=== PATIENT | female | born 1965 | race Caucasian/White ===

== ENCOUNTER 2018-06-07 16:40 | Emergency (ER) | payer OTHER ==
--- NOTE | 2018-06-07 16:53 | PDOC ---
Rapid Medical Evaluation Chief Complaint: Pain Time Seen by Provider: 06/07/18 16:51 Medical Evaluation: 06/07/18 16:52 I have performed a brief in-person evaluation of this patient. The patient presents with a chief complaint of: L foot pain X 3 days, felt like she stepped on something Pertinent physical exam findings:redness adn erythema noted in R plantar aspect- -lateral edge I have ordered the following:xray The patient will proceed to the ED for further evaluation. Discharge Disposition - Diagnosis Foot pain, left - Referrals - Patient Instructions - Post Discharge Activity
[2018-06-07 16:56] VITALS: BP 155/87; PULSE 82; TEMP 98; BMI 24.2
[2018-06-07] MEDS ORDERED: IBUPROFEN 400 MG TABLET (FP) PO ONE ×2 (17:41→17:48)
--- NOTE | 2018-06-07 17:47 | PDOC ---
History of Present Illness - General Chief Complaint: Pain Stated Complaint: LEFT FOOT PAIN Time Seen by Provider: 06/07/18 16:51 History Source: Patient Exam Limitations: Clinical Condition - History of Present Illness Initial Comments: 06/07/18 17:42 Patient with no sig Past medical history presenting with complain of pain and redness to bottom of left foot since yesterday without trauma or injury. Patient reported increased pain with ambulation or stepping on her foot. Last tetanus vaccine 4 years ago. Denies any other symptoms Timing/Duration: 24 hours Past History - Past Medical History Allergies/Adverse Reactions: Allergies Allergy/AdvReac Type Severity Reaction Status Date / Time No Known Allergies Allergy Verified 06/07/18 16:56 Home Medications: Ambulatory Orders Ibuprofen 800 mg PO Q8H PRN #20 tablet 06/07/18 Sulfamethoxazole/Trimethoprim [Bactrim Ds Tablet] 1 each PO BID 5 Days #10 tablet 06/07/18 - Suicide/Smoking/Psychosocial Hx Smoking History: Never smoked Have you smoked in the past 12 months: No Information on smoking cessation initiated: No Hx Alcohol Use: No Drug/Substance Use Hx: No Review of Systems - Review of Systems Able to Perform ROS?: Yes Is the patient limited Maori proficient: No Constitutional: No: Chills, Diaphoresis, Fever, Loss of Appetite, Malaise, Night Sweats, Weakness, Weight Stable, Unintentional Wgt. Loss, Unexplained wgt Loss, Other HEENTM: No: Eye Pain, Blurred Vision, Tearing, Recent change in vision, Double Vision, Cataracts, Ear Pain, Ocular Prothesis, Ear Discharge, Nose Pain, Nose Congestion, Tinnitus, Nose Bleeding, Hearing Loss, Throat Pain, Throat Swelling , Mouth Pain, Dental Problems, Difficulty Swallowing, Mouth Swelling, Other Respiratory: No: Cough, Orthopnea, Shortness of Breath, SOB with Exertion, SOB at Rest, Stridor, Wheezing, Productive cough, Hemoptysis, Other Cardiac (ROS): No: Chest Pain, Edema, Irregular Heart Rate, Lightheadedness, Palpitations, Syncope, Chest Tightness, Other ABD/GI: No: Abdominal Distended, Abd. Pain w/ defecation, Blood Streaked Bowels , Constipated, Diarrhea, Difficulty Swallowing, Nausea, Poor Appetite, Poor Fluid Intake, Rectal Bleeding, Vomiting, Indigestion, Abdominal cramping, Tarry Stools, Other Musculoskeletal: Yes: See HPI, Muscle Pain (lateral bottom of left foot). No: Back Pain, Gout, Joint Pain, Joint Swelling, Muscle Weakness, Neck Pain, Joint Stiffness, Other Integumentary: Yes: See HPI, Erythema (over pain area of bottom of left foot) All Other Systems: Reviewed and Negative *Physical Exam - Vital Signs Last Vital Signs Temp Pulse Resp BP Pulse Ox 98.0 F 82 16 155/87 100 06/07/18 16:49 06/07/18 16:49 06/07/18 16:49 06/07/18 16:49 06/07/18 16:49 - Physical Exam Comments: 06/07/18 17:45 GENERAL: Well developed, well nourished. Awake and alert. No acute distress. HEENT: Normocephalic, atraumatic. PERRLA, EOMI. No conjunctival pallor. Sclera are non- icteric. Moist mucous membranes. Oropharynx is clear. NECK: Supple. Full ROM. No JVD. Carotid pulses 2+ and symmetric, without bruits. No thyromegaly. No lymphadenopathy. CARDIOVASCULAR: Regular rate and rhythm. No murmurs, rubs, or gallops. Distal pulses are 2+ and symmetric. PULMONARY: No evidence of respiratory distress. Lungs clear to auscultation bilaterally. No wheezing, rales or rhonchi. ABDOMINAL: Soft. Non-tender. Non-distended. No rebound or guarding. No organomegaly. Normoactive bowel sounds. MUSCULOSKELETAL Normal range of motion at all joints. No bony deformities or tenderness. No CVA tenderness. EXTREMITIES: Moderate point tenderness over area of redness to lateral plantar aspect of left foot with mild erythema to site. No open wounds or swelling No cyanosis. No clubbing. No edema. No calf tenderness. SKIN: Mild erythema to plantar lateral of left foot. No open wound or entry wound.Warm and dry. NEUROLOGICAL: Alert, awake, appropriate. Cranial nerves 2-12 intact. No deficits to light touch and temperature in face, upper extremities and lower extremities. No motor deficits in the in face, upper extremities and lower extremities. Normoreflexic in the upper and lower extremities. Normal speech. Toes are down- going bilaterally. Gait is normal without ataxia. PSYCHIATRIC: Cooperative. Good eye contact. Appropriate mood and affect. General Appearance: Yes: Nourished, Appropriately Dressed. No: Apparent Distress Medical Decision Making - Medical Decision Making 06/07/18 17:47 Patient with no sig Past medical history presenting with complain of three-day history of pain and redness to plantar aspect of left foot without trauma or injury. Exam shows mild erythema to plantar lateral aspect of left foot and moderate tenderness on palpation of plantar aspect of left foot. X-ray of left foot and ankle shows no acute pathology. Symptoms likely puncture wound versus foot sprain. Patient be treated on NSAIDs and antibiotics with podiatry follow- up. Left foot wrapped with Zoltan bandage *DC/Admit/Observation/Transfer Diagnosis at time of Disposition: Foot pain, left, Cellulitis of left foot - Discharge Dispostion Disposition: HOME Condition at time of disposition: Stable Decision to Admit order: No - Prescriptions Prescriptions: Ibuprofen 800 mg PO Q8H PRN #20 tablet PRN Reason: foot pain Sulfamethoxazole/Trimethoprim [Bactrim Ds Tablet] 1 each PO BID 5 Days #10 tablet - Referrals Referrals: Angus Beckford MD [Staff Physician] - - Patient Instructions Printed Discharge Instructions: DI for Puncture Wound Additional Instructions: take prescribed medication as prescribed. follow up with referred podiatry - Post Discharge Activity
== END 2018-06-07 17:58 | disposition home or self-care (01) ==
LOC: JERFT 16:40
DX: L03.116 Cellulitis of left lower limb (principal); M79.672 Pain in left foot
CPT/HCPCS: 73630-TC-LT; 99281-25

== ENCOUNTER 2023-01-02 10:58 | Inpatient (IN) | payer OTHER ==
[2023-01-02] MEDS ORDERED: SODIUM CHLORIDE 0.9% 500 ML INFUS.BAG IV ONE (12:21)
[2023-01-02] MEDS ORDERED: Methylnaltrexone Bromide 12 MG/0.6 ML KIT SQ ONE (12:21)
[2023-01-02 13:06] LABS: HEMATOCRIT 25.6 % (32.4-45.2); HEMOGLOBIN 8.4 GM/dL (10.7-15.3); MCH 29.6 pg (25.7-33.7); MCHC 32.8 g/dl (32.0-36.0); MEAN CELL VOLUME 90.2 fl (80-96); MEAN PLT VOLUME 6.7 fl (7.5-11.1); PLATELET COUNT 479 10^3/uL (134-434); RBC 2.84 M/mm3 (3.60-5.2); RDW 19.3 % (11.6-15.6); WHITE BLOOD COUNT 21.7 K/mm3 (4.0-10.0)
[2023-01-02 13:28] LABS: BLOOD UREA NITROGEN 10.6 mg/dL (7-18); CALCIUM 9.4 mg/dL (8.5-10.1); MAGNESIUM 1.9 mg/dL (1.8-2.4)
[2023-01-02 13:29] LABS: ALBUMIN 2.9 g/dl (3.4-5.0)
[2023-01-02 13:31] LABS: PHOSPHOROUS 3.9 mg/dL (2.5-4.9)
[2023-01-02 13:32] LABS: CREATININE 0.6 mg/dL (0.55-1.3)
[2023-01-02 13:33] LABS: BILIRUBIN,TOTAL 0.4 mg/dL (0.2-1); TOT PROT 6.6 g/dl (6.4-8.2)
[2023-01-02] MEDS ORDERED: MINERAL OIL ENEMA 133 ML ENEMA PR ONE (14:06)
[2023-01-02] MEDS ORDERED: POLYETHYLENE GLYCOL (HEALTHYLAX) 3350 17 GM PACKET PO ONE (14:15)
[2023-01-02 14:28] LABS: ANISOCYTOSIS 0; MACROCYTOSIS 1+; OVALOCYTE 1+
[2023-01-02] MEDS ORDERED: POLYETHYLENE GLYCOL (HEALTHYLAX) 3350 17 GM PACKET ONE (15:44)
[2023-01-02] MEDS ORDERED: ONDANSETRON 8 MG TABLET (FP) PO PRN (15:55)
[2023-01-02] MEDS ORDERED: BENZONATATE 100 MG CAPSULE PO PRN (15:55)
[2023-01-02] MEDS ORDERED: MINERAL OIL ENEMA 133 ML ENEMA RC ONE (15:57)
[2023-01-02] MEDS ORDERED: LACTULOSE 20 GM/30 ML UDC (FOR ORAL USE ONLY) PO ONE (15:58)
[2023-01-02] MEDS ORDERED: ACETAMINOPHEN 325 MG TABLET (FP) PO PRN (16:00)
[2023-01-02] MEDS: SODIUM CHLORIDE 1,000 ML IV SCH (16:57)
[2023-01-02] MEDS ORDERED: LACTULOSE 20 GM/30 ML UDC (FOR ORAL USE ONLY) ONE (16:58)
[2023-01-02] MEDS ORDERED: ACETAMINOPHEN INJECTION 100 ML IVPB ONE (17:36)
[2023-01-02] MEDS ORDERED: ACETAMINOPHEN 1000 MG/100 ML BAG IVPB ONE (17:42)
[2023-01-02] MEDS: oxyCODONE HCL 5 MG TABLET PO PRN (19:34)
[2023-01-02] MEDS: HEPARIN NA (PORCINE) 5,000 UNITS/ML 1ML VIAL SQ SCH (21:54)
[2023-01-03] MEDS: oxyCODONE HCL 5 MG TABLET PO PRN ×4 (01:29→22:21)
[2023-01-03 09:22] LABS: HEMATOCRIT 24.3 % (32.4-45.2); HEMOGLOBIN 8.4 GM/dL (10.7-15.3); MCH 31.2 pg (25.7-33.7); MCHC 34.5 g/dl (32.0-36.0); MEAN CELL VOLUME 90.4 fl (80-96); MEAN PLT VOLUME 6.9 fl (7.5-11.1); PLATELET COUNT 516 10^3/uL (134-434); RBC 2.69 M/mm3 (3.60-5.2); RDW 18.7 % (11.6-15.6); WHITE BLOOD COUNT 22.6 K/mm3 (4.0-10.0)
[2023-01-03 09:47] LABS: BLOOD UREA NITROGEN 5.7 mg/dL (7-18)
[2023-01-03 09:50] LABS: CREATININE 0.4 mg/dL (0.55-1.3)
[2023-01-03] MEDS ORDERED: POLYETHYLENE GLYCOL (HEALTHYLAX) 3350 17 GM PACKET PO SCH (10:00)
[2023-01-03] MEDS ORDERED: PIPERACILLIN/TAZOB 3.375 GM 3.375 GM in DEXTROSE 5%-WATER - 50 ML IVPB SCH ×4 (10:00)
[2023-01-03] MEDS: HEPARIN NA (PORCINE) 5,000 UNITS/ML 1ML VIAL SQ SCH ×2 (10:49→22:21)
[2023-01-03] MEDS: POLYETHYLENE GLYCOL (HEALTHYLAX) 3350 17 GM PACKET PO SCH ×2 (10:49→22:21)
[2023-01-03] MEDS: DOCUSATE SODIUM 100 MG CAPSULE (FP) PO PRN (10:50)
[2023-01-03] MEDS: PIPERACILLIN/TAZOB 3.375 GM 3.375 GM in DEXTROSE 5%-WATER - 50 ML IVPB SCH ×2 (10:51→17:32)
[2023-01-03 11:29] LABS: ANISOCYTOSIS 0; HELMET CELLS 0; HOWELL-JOLLY BODIES 0; MACROCYTOSIS 0; OVALOCYTE 0; ROULEAU 0; SICKELED CELLS 0; TARGET CELLS 0; TEAR DROP CELLS 0; TOXIC GRANULATION 0
[2023-01-03] MEDS ORDERED: ONDANSETRON 4 MG TABLET PO ONE (13:04)
[2023-01-03] MEDS: SODIUM CHLORIDE 1,000 ML IV SCH (16:00)
[2023-01-03] MEDS: ACETAMINOPHEN 325 MG TABLET (FP) PO PRN ×2 (17:16→22:23)
[2023-01-03] MEDS: SODIUM CHLORIDE 1 GM TABLET PO SCH (21:20)
[2023-01-03] MEDS: SENNOSIDES 8.6MG TABLET (FP) PO SCH (22:20)
[2023-01-04] MEDS: PIPERACILLIN/TAZOB 3.375 GM 3.375 GM in DEXTROSE 5%-WATER - 50 ML IVPB SCH ×3 (02:34→17:35)
[2023-01-04 07:20] LABS: HEMATOCRIT 22.8 % (32.4-45.2); HEMOGLOBIN 8.2 GM/dL (10.7-15.3); MCH 31.9 pg (25.7-33.7); MCHC 35.9 g/dl (32.0-36.0); MEAN CELL VOLUME 88.7 fl (80-96); MEAN PLT VOLUME 7.4 fl (7.5-11.1); PLATELET COUNT 482 10^3/uL (134-434); RBC 2.56 M/mm3 (3.60-5.2); RDW 19.2 % (11.6-15.6); WHITE BLOOD COUNT 25.3 K/mm3 (4.0-10.0)
[2023-01-04 07:27] LABS: CHLORIDE 84 mmol/L (98-107)
[2023-01-04 07:29] LABS: BLOOD UREA NITROGEN 5.5 mg/dL (7-18); CALCIUM 8.6 mg/dL (8.5-10.1)
[2023-01-04 07:30] LABS: ALBUMIN 2.8 g/dl (3.4-5.0); CO2 23 mmol/L (21-32); GLUCOSE,RANDOM 79 mg/dL (74-106)
[2023-01-04 07:33] LABS: CREATININE 0.4 mg/dL (0.55-1.3); SGOT/AST 195 U/L (15-37); SGPT/ALT 21 U/L (13-61)
[2023-01-04 07:34] LABS: BILIRUBIN,TOTAL 0.8 mg/dL (0.2-1); TOT PROT 6.4 g/dl (6.4-8.2)
[2023-01-04 08:20] LABS: ALK PHOS 247 U/L (45-117); ANION GAP 12 MMOL/L (8-16); SODIUM 119 mmol/L (136-145)
[2023-01-04 09:00] LABS: ANISOCYTOSIS 2+; MACROCYTOSIS 1+
[2023-01-04] MEDS: SENNOSIDES 8.6MG TABLET (FP) PO SCH ×2 (09:01→22:04)
[2023-01-04] MEDS: POLYETHYLENE GLYCOL (HEALTHYLAX) 3350 17 GM PACKET PO SCH ×2 (09:01→22:04)
[2023-01-04] MEDS: HEPARIN NA (PORCINE) 5,000 UNITS/ML 1ML VIAL SQ SCH ×2 (09:02→22:04)
[2023-01-04] MEDS: SODIUM CHLORIDE 1 GM TABLET PO SCH ×2 (09:02→22:04)
[2023-01-04] MEDS ORDERED: SODIUM CHLORIDE 1,000 ML IV SCH (09:15)
[2023-01-04] MEDS ORDERED: SODIUM CHLORIDE 1,000 ML IV STA (11:01)
[2023-01-04 12:52] VITALS: BMI 20.9
[2023-01-04 13:30] LABS: CHLORIDE 82 mmol/L (98-107)
[2023-01-04 13:32] LABS: BLOOD UREA NITROGEN 5.1 mg/dL (7-18); CALCIUM 8.8 mg/dL (8.5-10.1); CO2 23 mmol/L (21-32); GLUCOSE,RANDOM 108 mg/dL (74-106)
[2023-01-04 13:36] LABS: CREATININE 0.5 mg/dL (0.55-1.3)
[2023-01-04 13:42] LABS: ANION GAP 14 MMOL/L (8-16); SODIUM 119 mmol/L (136-145)
[2023-01-04] MEDS: SODIUM CHLORIDE 1,000 ML IV SCH ×2 (14:51→22:03)
[2023-01-04] MEDS: oxyCODONE HCL 5 MG TABLET PO PRN (14:54)
[2023-01-04 16:47] LABS: CALCIUM 8.6 mg/dL (8.5-10.1)
[2023-01-04 16:48] LABS: BLOOD UREA NITROGEN 4.9 mg/dL (7-18)
[2023-01-04 16:51] LABS: CREATININE 0.4 mg/dL (0.55-1.3)
[2023-01-04] MEDS: ACETAMINOPHEN 325 MG TABLET (FP) PO PRN (17:35)
[2023-01-04 22:15] LABS: CHLORIDE 83 mmol/L (98-107)
[2023-01-04 22:16] LABS: CALCIUM 8.7 mg/dL (8.5-10.1)
[2023-01-04 22:17] LABS: BLOOD UREA NITROGEN 6.5 mg/dL (7-18); CO2 22 mmol/L (21-32); GLUCOSE,RANDOM 93 mg/dL (74-106)
[2023-01-04 22:20] LABS: ANION GAP 14 MMOL/L (8-16); CREATININE 0.5 mg/dL (0.55-1.3); SODIUM 119 mmol/L (136-145)
[2023-01-05] MEDS ORDERED: SODIUM CHLORIDE 1,000 ML IV SCH (01:22)
[2023-01-05] MEDS: PIPERACILLIN/TAZOB 3.375 GM 3.375 GM in DEXTROSE 5%-WATER - 50 ML IVPB SCH ×3 (02:31→17:09)
[2023-01-05] MEDS: SODIUM CHLORIDE 1,000 ML IV SCH ×4 (02:33→23:17)
[2023-01-05 04:34] LABS: HEMATOCRIT 22.4 % (32.4-45.2); HEMOGLOBIN 7.4 GM/dL (10.7-15.3); MCH 29.8 pg (25.7-33.7); MCHC 33.1 g/dl (32.0-36.0); MEAN CELL VOLUME 89.9 fl (80-96); MEAN PLT VOLUME 6.5 fl (7.5-11.1); PLATELET COUNT 491 10^3/uL (134-434); RBC 2.49 M/mm3 (3.60-5.2); RDW 19.6 % (11.6-15.6); WHITE BLOOD COUNT 23.8 K/mm3 (4.0-10.0)
[2023-01-05 05:33] LABS: CALCIUM 8.2 mg/dL (8.5-10.1)
[2023-01-05 05:34] LABS: ALBUMIN 2.6 g/dl (3.4-5.0); BLOOD UREA NITROGEN 5.6 mg/dL (7-18); MAGNESIUM 1.6 mg/dL (1.8-2.4)
[2023-01-05 05:37] LABS: CREATININE 0.4 mg/dL (0.55-1.3); PHOSPHOROUS 3.1 mg/dL (2.5-4.9)
[2023-01-05 05:38] LABS: BILIRUBIN,TOTAL 0.5 mg/dL (0.2-1)
[2023-01-05 05:42] LABS: TOT PROT 5.8 g/dl (6.4-8.2)
[2023-01-05 06:37] LABS: ANISOCYTOSIS 3+; MACROCYTOSIS 0; ROULEAU 1+
[2023-01-05] MEDS: oxyCODONE HCL 5 MG TABLET PO PRN ×2 (08:22→20:14)
[2023-01-05 09:12] LABS: CALCIUM 8.3 mg/dL (8.5-10.1)
[2023-01-05 09:13] LABS: BLOOD UREA NITROGEN 5.1 mg/dL (7-18)
[2023-01-05 09:15] LABS: CREATININE 0.4 mg/dL (0.55-1.3)
[2023-01-05] MEDS: POLYETHYLENE GLYCOL (HEALTHYLAX) 3350 17 GM PACKET PO SCH ×2 (10:00→10:10)
[2023-01-05] MEDS: SENNOSIDES 8.6MG TABLET (FP) PO SCH ×2 (10:01→10:11)
[2023-01-05] MEDS: SODIUM CHLORIDE 1 GM TABLET PO SCH ×3 (10:01→21:20)
[2023-01-05] MEDS: HEPARIN NA (PORCINE) 5,000 UNITS/ML 1ML VIAL SQ SCH ×2 (10:03→21:20)
[2023-01-05] MEDS ORDERED: MAGNESIUM SULF 50% (8.12 MEQ/2 ML-1 GM VIAL) IVPB ONE (10:24)
[2023-01-05 17:03] LABS: CHLORIDE 83 mmol/L (98-107)
[2023-01-05 17:05] LABS: CALCIUM 8.7 mg/dL (8.5-10.1)
[2023-01-05 17:06] LABS: BLOOD UREA NITROGEN 5.7 mg/dL (7-18); CO2 21 mmol/L (21-32); GLUCOSE,RANDOM 90 mg/dL (74-106)
[2023-01-05] MEDS: ACETAMINOPHEN 325 MG TABLET (FP) PO PRN (17:08)
[2023-01-05 17:09] LABS: ANION GAP 13 MMOL/L (8-16); CREATININE 0.4 mg/dL (0.55-1.3); SODIUM 117 mmol/L (136-145)
[2023-01-05 22:19] LABS: CHLORIDE 83 mmol/L (98-107)
[2023-01-05 22:20] LABS: CALCIUM 8.6 mg/dL (8.5-10.1)
[2023-01-05 22:21] LABS: BLOOD UREA NITROGEN 5.3 mg/dL (7-18); CO2 22 mmol/L (21-32); GLUCOSE,RANDOM 94 mg/dL (74-106)
[2023-01-05 22:24] LABS: CREATININE 0.4 mg/dL (0.55-1.3); IRON SERUM 38 ug/dL (50-175); TOTAL IRON BINDING CAPACITY 321 ug/dL (250-450); URIC ACID 2.8 mg/dL (2.6-7.2)
[2023-01-05 22:29] LABS: ANION GAP 13 MMOL/L (8-16); SODIUM 118 mmol/L (136-145)
[2023-01-06] MEDS: PIPERACILLIN/TAZOB 3.375 GM 3.375 GM in DEXTROSE 5%-WATER - 50 ML IVPB SCH ×2 (01:49→11:17)
[2023-01-06 03:36] LABS: CHLORIDE 85 mmol/L (98-107)
[2023-01-06 03:39] LABS: BLOOD UREA NITROGEN 4.4 mg/dL (7-18); CALCIUM 8.1 mg/dL (8.5-10.1); CO2 23 mmol/L (21-32); GLUCOSE,RANDOM 87 mg/dL (74-106); MAGNESIUM 1.9 mg/dL (1.8-2.4)
[2023-01-06 03:42] LABS: PHOSPHOROUS 3.2 mg/dL (2.5-4.9)
[2023-01-06 03:43] LABS: CREATININE 0.3 mg/dL (0.55-1.3)
[2023-01-06 04:25] LABS: ANION GAP 10 MMOL/L (8-16); SODIUM 118 mmol/L (136-145)
[2023-01-06] MEDS: SODIUM CHLORIDE 1 GM TABLET PO SCH ×3 (06:30→21:13)
[2023-01-06] MEDS ORDERED: SODIUM CHLORIDE 1,000 ML IV SCH (08:15)
[2023-01-06 09:09] LABS: HEMATOCRIT 20.7 % (32.4-45.2); MCH 30.5 pg (25.7-33.7); MCHC 33.9 g/dl (32.0-36.0); MEAN PLT VOLUME 6.8 fl (7.5-11.1); PLATELET COUNT 467 10^3/uL (134-434); RDW 20.1 % (11.6-15.6); WHITE BLOOD COUNT 26.2 K/mm3 (4.0-10.0)
[2023-01-06 09:18] LABS: BLOOD UREA NITROGEN 4.6 mg/dL (7-18); CALCIUM 8.1 mg/dL (8.5-10.1)
[2023-01-06 09:21] LABS: CREATININE 0.3 mg/dL (0.55-1.3)
[2023-01-06 11:10] LABS: ANISOCYTOSIS 2+; MACROCYTOSIS 2+; TEAR DROP CELLS 1+
[2023-01-06] MEDS: HEPARIN NA (PORCINE) 5,000 UNITS/ML 1ML VIAL SQ SCH ×2 (11:17→21:13)
[2023-01-06] MEDS: FERROUS GLUCONATE 324 MG TAB (FP) PO SCH (11:18)
[2023-01-06] MEDS: ASCORBIC ACID 500 MG TABLET (FP) PO SCH ×2 (11:18→21:13)
[2023-01-06] MEDS: oxyCODONE HCL 5 MG TABLET PO PRN ×2 (11:29→18:57)
[2023-01-06 16:04] LABS: BLOOD UREA NITROGEN 5.7 mg/dL (7-18); CALCIUM 8.8 mg/dL (8.5-10.1)
[2023-01-06 16:07] LABS: PHOSPHOROUS 2.9 mg/dL (2.5-4.9)
[2023-01-06 16:08] LABS: CREATININE 0.5 mg/dL (0.55-1.3)
[2023-01-06 21:53] LABS: CALCIUM 9.2 mg/dL (8.5-10.1)
[2023-01-06 21:57] LABS: CREATININE 0.5 mg/dL (0.55-1.3)
[2023-01-07 04:11] LABS: CALCIUM 8.7 mg/dL (8.5-10.1)
[2023-01-07 04:12] LABS: BLOOD UREA NITROGEN 6.4 mg/dL (7-18)
[2023-01-07 04:15] LABS: CREATININE 0.4 mg/dL (0.55-1.3)
[2023-01-07] MEDS: SODIUM CHLORIDE 1 GM TABLET PO SCH ×3 (05:02→21:16)
[2023-01-07 08:32] LABS: ALBUMIN 2.6 g/dl (3.4-5.0)
[2023-01-07] MEDS: ASCORBIC ACID 500 MG TABLET (FP) PO SCH ×3 (08:33→21:16)
[2023-01-07] MEDS: FERROUS GLUCONATE 324 MG TAB (FP) PO SCH ×2 (08:33→09:01)
[2023-01-07] MEDS: oxyCODONE HCL 5 MG TABLET PO PRN ×3 (08:33→20:37)
[2023-01-07] MEDS: HEPARIN NA (PORCINE) 5,000 UNITS/ML 1ML VIAL SQ SCH ×3 (08:34→21:16)
[2023-01-07 08:35] LABS: BILIRUBIN,DIRECT 0.2 mg/dL (0.0-0.2)
[2023-01-07 08:37] LABS: BILIRUBIN,TOTAL 0.3 mg/dL (0.2-1); TOT PROT 5.8 g/dl (6.4-8.2)
[2023-01-07 08:58] LABS: HEMATOCRIT 22.1 % (32.4-45.2); HEMOGLOBIN 7.8 GM/dL (10.7-15.3); MCH 31.6 pg (25.7-33.7); MCHC 35.4 g/dl (32.0-36.0); MEAN CELL VOLUME 89.4 fl (80-96); MEAN PLT VOLUME 7.1 fl (7.5-11.1); PLATELET COUNT 506 10^3/uL (134-434); RBC 2.47 M/mm3 (3.60-5.2); RDW 19.8 % (11.6-15.6); WHITE BLOOD COUNT 28.4 K/mm3 (4.0-10.0)
[2023-01-07 09:19] LABS: BLOOD UREA NITROGEN 5.9 mg/dL (7-18)
[2023-01-07 09:22] LABS: CALCIUM 9.1 mg/dL (8.5-10.1); CREATININE 0.3 mg/dL (0.55-1.3); PHOSPHOROUS 3.3 mg/dL (2.5-4.9)
[2023-01-07 09:23] LABS: MAGNESIUM 1.8 mg/dL (1.8-2.4)
[2023-01-07 09:47] LABS: ANISOCYTOSIS 0; HELMET CELLS 0; HOWELL-JOLLY BODIES 0; MACROCYTOSIS 0; OVALOCYTE 0; ROULEAU 0; SICKELED CELLS 0; TARGET CELLS 0; TEAR DROP CELLS 0; TOXIC GRANULATION 0
[2023-01-07] MEDS ORDERED: ACETAMINOPHEN 1000 MG/100 ML BAG IVPB PRN (12:10)
[2023-01-07] MEDS ORDERED: ACETAMINOPHEN 325 MG TABLET (FP) PO PRN (12:11)
[2023-01-07] MEDS: TORSEMIDE 10 MG TABLET PO SCH (13:48)
[2023-01-07] MEDS: BENZOCAINE/MENTHOL 1 EACH LOZENGE MM PRN (17:33)
[2023-01-08] MEDS: oxyCODONE HCL 5 MG TABLET PO PRN ×3 (03:09→18:33)
[2023-01-08] MEDS: SODIUM CHLORIDE 1 GM TABLET PO SCH ×3 (05:02→23:45)
[2023-01-08 09:04] LABS: HEMATOCRIT 23.2 % (32.4-45.2); HEMOGLOBIN 8.1 GM/dL (10.7-15.3); MCH 31.8 pg (25.7-33.7); MCHC 34.8 g/dl (32.0-36.0); MEAN CELL VOLUME 91.6 fl (80-96); MEAN PLT VOLUME 6.7 fl (7.5-11.1); PLATELET COUNT 523 10^3/uL (134-434); RBC 2.53 M/mm3 (3.60-5.2); RDW 20.8 % (11.6-15.6); WHITE BLOOD COUNT 29.4 K/mm3 (4.0-10.0)
[2023-01-08 09:29] LABS: CALCIUM 9.1 mg/dL (8.5-10.1)
[2023-01-08 09:30] LABS: ALBUMIN 2.9 g/dl (3.4-5.0); BLOOD UREA NITROGEN 12.6 mg/dL (7-18); MAGNESIUM 1.8 mg/dL (1.8-2.4)
[2023-01-08 09:33] LABS: CREATININE 0.5 mg/dL (0.55-1.3)
[2023-01-08 09:34] LABS: PHOSPHOROUS 4.2 mg/dL (2.5-4.9)
[2023-01-08 09:35] LABS: BILIRUBIN,TOTAL 0.4 mg/dL (0.2-1); TOT PROT 6.5 g/dl (6.4-8.2)
[2023-01-08 09:42] LABS: ANISOCYTOSIS 1+; MACROCYTOSIS 1+
[2023-01-08] MEDS ORDERED: PIPERACILLIN/TAZOB 3.375 GM 3.375 GM in DEXTROSE 5%-WATER - 50 ML IVPB SCH (10:00)
[2023-01-08] MEDS: ASCORBIC ACID 500 MG TABLET (FP) PO SCH ×2 (10:00→23:45)
[2023-01-08] MEDS: HEPARIN NA (PORCINE) 5,000 UNITS/ML 1ML VIAL SQ SCH ×2 (10:01→23:45)
[2023-01-08] MEDS: FERROUS GLUCONATE 324 MG TAB (FP) PO SCH (10:01)
[2023-01-08] MEDS ORDERED: oxyCODONE HCL 5 MG TABLET PO PRN (10:02)
[2023-01-08] MEDS: TORSEMIDE 10 MG TABLET PO SCH (13:07)
[2023-01-08] MEDS: GABAPENTIN 100 MG CAPSULE PO SCH ×2 (14:47→23:45)
[2023-01-08] MEDS: PIPERACILLIN/TAZOB 3.375 GM 3.375 GM in DEXTROSE 5%-WATER - 50 ML IVPB SCH (17:26)
[2023-01-08 18:39] LABS: CALCIUM 9.2 mg/dL (8.5-10.1)
[2023-01-08 18:40] LABS: BLOOD UREA NITROGEN 17.1 mg/dL (7-18)
[2023-01-08 18:43] LABS: CREATININE 0.7 mg/dL (0.55-1.3)
[2023-01-09] MEDS: PIPERACILLIN/TAZOB 3.375 GM 3.375 GM in DEXTROSE 5%-WATER - 50 ML IVPB SCH ×3 (02:35→17:32)
[2023-01-09] MEDS: oxyCODONE HCL 5 MG TABLET PO PRN (02:35)
[2023-01-09] MEDS: GABAPENTIN 100 MG CAPSULE PO SCH ×3 (06:49→21:46)
[2023-01-09] MEDS: SODIUM CHLORIDE 1 GM TABLET PO SCH ×3 (06:49→22:52)
[2023-01-09 09:01] LABS: HEMATOCRIT 24.1 % (32.4-45.2); HEMOGLOBIN 8.1 GM/dL (10.7-15.3); MCH 31.1 pg (25.7-33.7); MCHC 33.6 g/dl (32.0-36.0); MEAN CELL VOLUME 92.8 fl (80-96); MEAN PLT VOLUME 6.8 fl (7.5-11.1); PLATELET COUNT 510 10^3/uL (134-434); RDW 20.8 % (11.6-15.6); WHITE BLOOD COUNT 28.9 K/mm3 (4.0-10.0)
[2023-01-09] MEDS: HEPARIN NA (PORCINE) 5,000 UNITS/ML 1ML VIAL SQ SCH ×2 (09:54→21:48)
[2023-01-09 09:55] LABS: TOT PROT 6.5 g/dl (6.4-8.2)
[2023-01-09 09:56] LABS: ALBUMIN 2.7 g/dl (3.4-5.0); CALCIUM 8.9 mg/dL (8.5-10.1)
[2023-01-09] MEDS: ASCORBIC ACID 500 MG TABLET (FP) PO SCH ×2 (09:56→21:46)
[2023-01-09] MEDS: FERROUS GLUCONATE 324 MG TAB (FP) PO SCH (09:56)
[2023-01-09] MEDS: TORSEMIDE 10 MG TABLET PO SCH (09:56)
[2023-01-09] MEDS: LIDOCAINE 5% TOPICAL PATCH TP SCH (09:56)
[2023-01-09 09:57] LABS: MAGNESIUM 1.9 mg/dL (1.8-2.4)
[2023-01-09 09:59] LABS: CREATININE 0.9 mg/dL (0.55-1.3); PHOSPHOROUS 5.9 mg/dL (2.5-4.9)
[2023-01-09 10:00] LABS: BILIRUBIN,TOTAL 0.5 mg/dL (0.2-1)
[2023-01-09] MEDS ORDERED: oxyCODONE HCL 10 MG SUSTAINED ACTING TABLET PO ONE (10:00)
[2023-01-09] MEDS ORDERED: oxyCODONE HCL 10 MG SUSTAINED ACTING TABLET PO SCH (10:00)
[2023-01-09 10:31] LABS: ANISOCYTOSIS 0; MACROCYTOSIS 1+
[2023-01-09] MEDS: LIDOCAINE PATCH REMOVAL MC SCH (21:48)
[2023-01-10] MEDS: PIPERACILLIN/TAZOB 3.375 GM 3.375 GM in DEXTROSE 5%-WATER - 50 ML IVPB SCH ×3 (01:39→18:17)
[2023-01-10] MEDS ORDERED: ONDANSETRON 4 MG TABLET PO ONE (04:08)
[2023-01-10] MEDS: SODIUM CHLORIDE 1 GM TABLET PO SCH ×2 (05:24→13:57)
[2023-01-10] MEDS: GABAPENTIN 100 MG CAPSULE PO SCH ×2 (05:25→13:56)
[2023-01-10 08:09] LABS: HEMATOCRIT 23.3 % (32.4-45.2); HEMOGLOBIN 7.9 GM/dL (10.7-15.3); MCH 31.8 pg (25.7-33.7); MEAN CELL VOLUME 93.5 fl (80-96); MEAN PLT VOLUME 6.9 fl (7.5-11.1); PLATELET COUNT 480 10^3/uL (134-434); RBC 2.49 M/mm3 (3.60-5.2); WHITE BLOOD COUNT 29.6 K/mm3 (4.0-10.0)
[2023-01-10 08:28] LABS: ALBUMIN 2.5 g/dl (3.4-5.0); BLOOD UREA NITROGEN 27.4 mg/dL (7-18); MAGNESIUM 2.2 mg/dL (1.8-2.4)
[2023-01-10 08:31] LABS: CREATININE 0.9 mg/dL (0.55-1.3); PHOSPHOROUS 5.6 mg/dL (2.5-4.9)
[2023-01-10 08:32] LABS: BILIRUBIN,TOTAL 0.7 mg/dL (0.2-1); TOT PROT 6.5 g/dl (6.4-8.2)
[2023-01-10] MEDS: oxyCODONE HCL 5 MG TABLET PO PRN ×3 (08:49→19:25)
[2023-01-10] MEDS: LIDOCAINE 5% TOPICAL PATCH TP SCH (09:02)
[2023-01-10] MEDS: ASCORBIC ACID 500 MG TABLET (FP) PO SCH (09:02)
[2023-01-10] MEDS: FERROUS GLUCONATE 324 MG TAB (FP) PO SCH (09:02)
[2023-01-10] MEDS: HEPARIN NA (PORCINE) 5,000 UNITS/ML 1ML VIAL SQ SCH (09:02)
[2023-01-10 09:54] LABS: ANISOCYTOSIS 1+; MACROCYTOSIS 0
[2023-01-10] MEDS ORDERED: FLUCONAZOLE 400 MG/NS 200 ML IVPB ONE (10:15)
[2023-01-10] MEDS: POLYETHYLENE GLYCOL (HEALTHYLAX) 3350 17 GM PACKET PO SCH (13:56)
[2023-01-10] MEDS: DOCUSATE SODIUM 100 MG CAPSULE (FP) PO PRN (13:57)
[2023-01-11] MEDS: SODIUM CHLORIDE 1 GM TABLET PO SCH ×4 (00:11→21:44)
[2023-01-11] MEDS: SENNOSIDES 8.6MG TABLET (FP) PO SCH ×2 (00:12→21:44)
[2023-01-11] MEDS: oxyCODONE HCL 5 MG TABLET PO PRN ×2 (00:12→21:44)
[2023-01-11] MEDS: GABAPENTIN 100 MG CAPSULE PO SCH ×4 (00:13→21:44)
[2023-01-11] MEDS: ASCORBIC ACID 500 MG TABLET (FP) PO SCH ×3 (00:13→21:44)
[2023-01-11] MEDS: HEPARIN NA (PORCINE) 5,000 UNITS/ML 1ML VIAL SQ SCH ×3 (00:13→21:45)
[2023-01-11] MEDS: LIDOCAINE PATCH REMOVAL MC SCH ×3 (00:13→22:09)
[2023-01-11] MEDS: PIPERACILLIN/TAZOB 3.375 GM 3.375 GM in DEXTROSE 5%-WATER - 50 ML IVPB SCH ×2 (03:18→09:31)
[2023-01-11] MEDS: BENZOCAINE/MENTHOL 1 EACH LOZENGE MM PRN ×2 (03:30→22:10)
[2023-01-11 08:10] LABS: HEMATOCRIT 22.3 % (32.4-45.2); HEMOGLOBIN 7.4 GM/dL (10.7-15.3); MCH 31.2 pg (25.7-33.7); MCHC 33.3 g/dl (32.0-36.0); MEAN CELL VOLUME 93.5 fl (80-96); MEAN PLT VOLUME 6.7 fl (7.5-11.1); PLATELET COUNT 453 10^3/uL (134-434); RBC 2.39 M/mm3 (3.60-5.2); RDW 20.9 % (11.6-15.6); WHITE BLOOD COUNT 25.9 K/mm3 (4.0-10.0)
[2023-01-11 08:33] LABS: CALCIUM 9.5 mg/dL (8.5-10.1)
[2023-01-11 08:34] LABS: ALBUMIN 2.4 g/dl (3.4-5.0); BLOOD UREA NITROGEN 30.2 mg/dL (7-18); MAGNESIUM 2.2 mg/dL (1.8-2.4)
[2023-01-11 08:36] LABS: PHOSPHOROUS 4.2 mg/dL (2.5-4.9)
[2023-01-11 08:37] LABS: BILIRUBIN,TOTAL 0.5 mg/dL (0.2-1); CREATININE 0.9 mg/dL (0.55-1.3); TOT PROT 6.2 g/dl (6.4-8.2)
[2023-01-11 08:45] VITALS: RESP 18
[2023-01-11] MEDS: LIDOCAINE 5% TOPICAL PATCH TP SCH (09:31)
[2023-01-11] MEDS: FERROUS GLUCONATE 324 MG TAB (FP) PO SCH (09:32)
[2023-01-11] MEDS: POLYETHYLENE GLYCOL (HEALTHYLAX) 3350 17 GM PACKET PO SCH ×2 (09:32→14:03)
[2023-01-11 09:50] LABS: ANISOCYTOSIS 0; MACROCYTOSIS 0
[2023-01-11] MEDS: FLUCONAZOLE 400 MG/NS 200 ML IVPB SCH (11:22)
[2023-01-11] MEDS ORDERED: TORSEMIDE 10 MG TABLET PO SCH (12:45)
[2023-01-12] MEDS: SODIUM CHLORIDE 1 GM TABLET PO SCH ×2 (05:40→14:11)
[2023-01-12] MEDS: GABAPENTIN 100 MG CAPSULE PO SCH ×2 (05:40→14:11)
[2023-01-12] MEDS: oxyCODONE HCL 5 MG TABLET PO PRN ×2 (05:41→10:53)
[2023-01-12] MEDS: LIDOCAINE 5% TOPICAL PATCH TP SCH (10:50)
[2023-01-12] MEDS: ASCORBIC ACID 500 MG TABLET (FP) PO SCH (10:50)
[2023-01-12] MEDS: FLUCONAZOLE 400 MG/NS 200 ML IVPB SCH (10:50)
[2023-01-12] MEDS: HEPARIN NA (PORCINE) 5,000 UNITS/ML 1ML VIAL SQ SCH (10:50)
[2023-01-12] MEDS: FERROUS GLUCONATE 324 MG TAB (FP) PO SCH (10:50)
[2023-01-12] MEDS: POLYETHYLENE GLYCOL (HEALTHYLAX) 3350 17 GM PACKET PO SCH ×3 (11:00→14:17)
[2023-01-12 14:18] VITALS: BP 132/84; PULSE 115; TEMP 98.3
== END 2023-01-12 19:15 | disposition home health service (06) | DRG 424 ==
LOC: JER 10:58 → INTOOBSV 15:18 → JERBED 15:18 → J7W 18:50 → OBSVTOIN 01-05 12:17
PROVIDERS: ADMIT Internal Medicine
DX: E22.2 Syndrome of inappropriate secretion of antidiuretic hormone (principal); K59.00 Constipation, unspecified; R62.7 Adult failure to thrive; Z68.20 Body mass index [BMI] 20.0-20.9, adult; C79.9 Secondary malignant neoplasm of unspecified site; C78.00 Secondary malignant neoplasm of unspecified lung; C78.7 Secondary malignant neoplasm of liver and intrahepatic bile duct; C79.02 Secondary malignant neoplasm of left kidney and renal pelvis; C79.01 Secondary malignant neoplasm of right kidney and renal pelvis; M79.662 Pain in left lower leg; M84.48XA Pathological fracture, other site, initial encounter for fracture; R64 Cachexia; E43 Unspecified severe protein-calorie malnutrition; D64.9 Anemia, unspecified; G89.29 Other chronic pain; L03.116 Cellulitis of left lower limb; R19.7 Diarrhea, unspecified; D64.81 Anemia due to antineoplastic chemotherapy; T45.1X5A Adverse effect of antineoplastic and immunosuppressive drugs, initial encounter
CPT/HCPCS: 0241U-QW; 36415; 71045-TC-FY; 74018-TC-FY; 74177-TC; 80048; 80053; 80076; 82378; 82533; 82570; 82728; 82962; 83540; 83550; 83735; 83930; 83935; 84100; 84295; 84300; 84439; 84443; 84550; 85025; 86301; 86304; 86850; 86900; 86901; 87040; 87077; 87086; 93005; 93010; 94761; 97116-GP; 97161-GP; 99285-25; G0378; J1644